=== PATIENT | female | born 1985 | race Caucasian/White ===

== ENCOUNTER 2017-12-16 12:57 | Emergency (ER) | payer OTHER ==
--- NOTE | 2017-12-16 13:11 | EDPHY ---
H & P Stated Complaint: body aches Time Seen by Provider: 12/16/17 13:08 - Personal History LMP (Females 10-55): 15-21 Days Ago Current Tetanus/Diphtheria Vaccine: Yes Current Tetanus Diphtheria and Acellular Pertussis (TDAP): Yes - Medical/Surgical History Hx Asthma: Yes Hx Chronic Respiratory Disease: No Hx Diabetes: No Hx Cardiac Disease: No Hx Renal Disease: No Hx Cirrhosis: No Hx Alcoholism: No Hx HIV/AIDS: No Hx Splenectomy or Spleen Trauma: No Other PMH: pmh: denies, asthma? psh: Osteomylitis right foot surgery (1998), sinus surgery 2017 - Social History Smoking Status: Former smoker Constitutional: Initial Vital Signs Temperature (C) 37.5 C 12/16/17 13:03 Heart Rate 103 H 12/16/17 13:03 Respiratory Rate 16 12/16/17 13:03 Blood Pressure 100/76 12/16/17 13:03 O2 Sat (%) 95 12/16/17 13:03 O2 Delivery Mode Room Air Allergies/Adverse Reactions: amoxicillin [Amoxicillin] Allergy (Verified 12/16/17 13:02) Penicillins Allergy (Verified 12/16/17 13:02) Home Medications: Medication Instructions Recorded Bactrim DS 12/16/17 Ibuprofen 12/16/17 Medical Decision Making ED Course/Re-evaluation: CHIEF COMPLAINT: Body aches, chills HISTORY OF PRESENT ILLNESS: The patient is a 32 y/o female complaining of body aches and chills for the past 3 days. 4.5 weeks ago she had an endoscopic sinus surgery with Dr. Curtis Batista. 6 days ago she was placed on Bactrim due to a bacterial infection found during a follow up visit. Took 800mg PO Motrin prior to arrival in the ED. Denies cough, shortness of breath, chest pain, paresthesias, numbness or other pertinent symptoms. REVIEW OF SYSTEMS: A 10 point review of systems was performed and is negative with the exception of the elements mentioned in the history of present illness. PHYSICAL EXAM: HR, BP, O2 Sat, RR. Temp noted General Appearance: Alert, well hydrated, appropriate, and non-toxic appearing. Head: Atraumatic without scalp tenderness or obvious injury Eyes: Pupils equal, round, reactive to light and accommodation, EOMI, no trauma , no injection. Ears: Clear bilaterally, no perforation, normal landmarks Nose: Atraumatic, no rhinorrhea, clear. Throat: There is no erythema or exudates, no lesions, normal tonsils, mucus membranes moist. Neck: Supple, nontender, no lymphadenopathy. Respiratory: No retractions, no distress, no wheezes, and no accessory muscle use. Lungs are clear to auscultation bilaterally. Cardiovascular: Regular rate and rhythm, no murmurs, rubs, or gallops. Good capillary refill all extremities. Gastrointestinal: Abdomen is soft, nontender, non-distended, no masses, no rebound, no guarding, no peritoneal signs. Musculoskeletal: Normal active ROM of all extremities, atraumatic. Neurological: Alert, appropriate, and interactive. Non-focal neuro. Skin: No rashes, good turgor, no nodules on palpation. Past medical history: Asthma Past surgical history: Sinus surgery (2016), osteomyelitis right foot surgery ( 1998) Family history: Denies Social history: Boyfriend at bedside, live in [place], [facility] DIFFERENTIAL DIAGNOSIS: The differential diagnosis for the patient's fever included but was not limited to pneumonia, urinary tract infection, viral syndrome, meningitis, and sepsis. MEDICAL DECISION MAKING: The patient is a 32 y/o male presenting with body aches and chills for 3 days. 6 days ago she was placed on Bactrim following a sinus surgery. Her physical exam is normal. Influenza swab ordered. 1414: Patient is negative for influenza; her symptoms are consistent with a viral syndrome. 1416: Reassessed patient and discussed laboratory findings. Return precautions provided; patient is comfortable with this plan. - Data Points Laboratory Results: 12/16/17 13:15 Nasal Influenza A PCR NEGATIVE FOR FLU A (NEGATIVE) Nasal Influenza B PCR NEGATIVE FOR FLU B (NEGATIVE) Departure - Departure Disposition: Home, Routine, Self-Care Clinical Impression: Viral syndrome Fever Qualifiers: Fever type: due to other condition Qualified Code(s): R50.81 - Fever presenting with conditions classified elsewhere Condition: Good Instructions: Viral Syndrome (ED) Additional Instructions: 1. Use Tylenol 1000 mg every 4-6 hours, ibuprofen 800 mg every 6 hours as needed for fever. 2. Increase fluid intake as much as tolerated. 4. Follow up with primary care physician in 3-4 days if not improving. 6. Return to the Emergency Department for uncontrollable fever, shortness of breath, or other worsening of condition. Referrals: PETR AARON [Primary Care Provider] - As per Instructions Report Scribed for: Butch Marcano Report Scribed by: Aiyana Merino Date of Report: 12/16/17 Time of Report: 13:09
[2017-12-16 14:21] VITALS: BP 89/57; PULSE 85; RESP 18; TEMP 98.9; O2SAT 94
== END 2017-12-16 14:15 | disposition home or self-care (01) ==
DX: B34.9 Viral infection, unspecified (principal); J45.909 Unspecified asthma, uncomplicated; Z87.891 Personal history of nicotine dependence

== ENCOUNTER → 2019-01-27 | Outpatient (CLI) | payer OTHER | LOC: FIMAGING 08:20 | PROVIDERS: ATTEND Advanced Practice Midwife | DX: O09.512 Supervision of elderly primigravida, second trimester (principal); Z3A.19 19 weeks gestation of pregnancy ==